=== PATIENT | male | born 1945 | race Caucasian/White ===

== ENCOUNTER 2018-11-05 23:53 | Emergency (ER) | payer MEDICARE, BC ==
[~2018-11-05] VITALS: Ht 175.3 cm; Wt 75.0 kg
[2018-11-06] VITALS: BP 110/70
[2018-11-06] MEDS ORDERED: LIDOCAINE-MPF 1%, 5ML INFIL ONE (00:30)
[2018-11-06] MEDS ORDERED: DIPH,PERTUSS(ACELL),TET VAC/PF 0.5 ML IM-VACC ONE ×2 (00:30→00:37)
[2018-11-06] MEDS ORDERED: LIDOCAINE-MPF 1%, 5ML ONE (00:36)
--- NOTE | 2018-11-06 00:43 | NUR ---
PT GIVEN TETANUS SHOT. PT RESTING WITH NO NEEDS AT THIS TIME. CALL LIGHT IN REACH
[2018-11-06] MEDS ORDERED: BACITRACIN ZINC OINT 500U/GM, 0.9 GM ONE (01:28)
--- NOTE | 2018-11-06 01:37 | NUR ---
sutures were done danielle dodson is cleaning the wound now then pt will be dc'd home at bed side
--- NOTE | 2018-11-06 02:06 | NUR ---
Patient given discharge instructions and they have confirmed that they understand the instructions. Patient ambulatory with steady gait.
== END 2018-11-06 02:08 | disposition home or self-care (01) ==
LOC: ED 11-06 02:00
DX: S61.411A Laceration without foreign body of right hand, initial encounter (principal); S50.311A Abrasion of right elbow, initial encounter; S40.812A Abrasion of left upper arm, initial encounter; S50.812A Abrasion of left forearm, initial encounter; S60.512A Abrasion of left hand, initial encounter; W18.30XA Fall on same level, unspecified, initial encounter; Y93.89 Activity, other specified; Y92.59 Other trade areas as the place of occurrence of the external cause; Y99.8 Other external cause status
CPT/HCPCS: 12041; 90471; 90715